=== PATIENT | female | born 1955 | race Caucasian/White ===

== ENCOUNTER → 2018-01-17 14:58 | Outpatient (POV) | payer OTHER, SELFPAY | PROVIDERS: Family Provider Internal Medicine; PCP Internal Medicine; Visit Provider Physician Assistant | DX: Z00.00 Encounter for general adult medical examination without abnormal findings (principal) ==

== ENCOUNTER → 2018-04-07 15:05 | Outpatient (CLI) | payer OTHER, SELFPAY ==
--- NOTE | 2018-04-07 15:08 | MM_ITS ---
MM Dig screening mamm BI w/CAD CAD Screening COMPARISON: Digital mammograms with CAD 03/13/2015 and 02/27/2014 INDICATION: There is a history of breast cancer patient's aunt diagnosed after menopause there has been previous biopsy right breast for benign disease TECHNIQUE: Standard CC and MLO images were obtained. R2 CAD reviewed. FINDINGS: Prominent diffuse fibroglandular densities are seen in both breasts. Again noted is asymmetric glandular tissue axillary tail right breast but appears somewhat less prominent on today's study than previously. A biopsy clip is again noted upper outer quadrant right breast. There is no suspicious lesion and no suspicious microcalcifications. There are couple benign-appearing calcifications in each breast. IMPRESSION: Stable exam no suspicious lesion seen BI-RADS Category: 2 Benign Finding(s) RECOMMENDED FOLLOW-UP: 1YR - 1 YEAR FOLLOW-UP (A letter has been sent to the patient regarding results of the study.)
== END ==
PROVIDERS: PCP Internal Medicine; Visit Provider Nurse Practitioner Obstetrics & Gynecology
DX: Z12.31 Encounter for screening mammogram for malignant neoplasm of breast (principal)
CPT/HCPCS: 77067

== ENCOUNTER → 2018-05-17 15:11 | Outpatient (POV) | payer OTHER, SELFPAY | PROVIDERS: Visit Provider Dermatology | DX: Z00.00 Encounter for general adult medical examination without abnormal findings (principal) ==

== ENCOUNTER → 2019-06-28 15:12 | Outpatient (CLI) | payer OTHER, SELFPAY ==
--- NOTE | 2019-06-28 15:13 | MM_ITS ---
PROCEDURE: MM DIG SCREENING MAMM BI W/CAD CLINICAL INDICATION: screening xmg There is a history of breast cancer patient's aunt diagnosed after menopause. There has been previous biopsy right breast for benign disease. COMPARISON: [facility] DIG MAMM-SCREEN [facility] from 02/27/2014 [facility] DIG MAMM-SCREEN [facility] from 03/13/2015 [facility] MM Dig screening mamm BI w/CAD from 04/07/2018 TECHNIQUE: Standard CC and MLO images and 3D Tomosynthesis was obtained. R2 CAD reviewed. FINDINGS: Moderate diffuse fibroglandular densities are seen in the central portions of both breasts. There is a biopsy clip right breast. Cristobal images were reviewed showing no suspicious abnormality in either breast. There are no suspicious microcalcifications. IMPRESSION: Moderate diffuse density with no suspicious lesions seen BI-RAD Category: 2 Benign Finding(s) FOLLOW-UP: 1YR 1 Year Follow-up (A letter has been sent to the patient regarding results of the study.) Dictated by: Dr. López Sheppard MD 07/04/2019 12:[address] López Sheppard MD in [place] 07/04/2019 12:59
== END ==
PROVIDERS: PCP Internal Medicine; Visit Provider Nurse Practitioner Obstetrics & Gynecology
DX: Z12.31 Encounter for screening mammogram for malignant neoplasm of breast (principal)
CPT/HCPCS: 77063; 77067

== ENCOUNTER 2020-01-23 19:02 | Emergency (ER) | payer OTHER, SELFPAY ==
[2020-01-23 19:23] VITALS: BP 148/123; PULSE 109; RESP 20; O2SAT 96; BMI 26.4
--- NOTE | 2020-01-23 19:33 | HMH.EDUTC ---
[facility] [place] Disposition Clinical Impression: Encounter for laboratory testing for COVID-19 virus Upper respiratory infection Qualifiers: URI type: unspecified URI Qualified Code(s): J06.9 - Acute upper respiratory infection, unspecified Disposition: Home, Self-Care Condition on Discharge: Good Instructions: Sore Throat, DI for Sinusitis, Sinusitis, Preventing the Spread of Coronavirus Discharge Instructions Additional Instructions: *Monitor Temp, Over the counter Motrin or Tylenol as directed/as needed Tylenol every 4 hours and Motrin every 6 hours (as long as your family doctor has told you that you can take it) for fever or pain. and straight to ER if unable to lower temp less than 101.0 after medication given *Warm salt water gargles may help to soothe the throat *Throat Lozenges *Warm fluids like tea with honey may help to soothe the throat *Sleep elevated *Humidifier/Vaporizer *Flonase 2 sprays in each nostril daily but be aware that it may take 2-3 days before you notice improvement Your throat swab was sent for culture. Those results are typically sent to your primary care. Be sure to follow up in 2-3 days with your family doctor/primary care physician if no improvement so they can review those result and treat if necessary. If you don?t have a primary care doctor, I recommend you get one but in the mean time, you will have to return to a walk in clinic Follow up IMMEDIATELY for new or worsening symptoms or no Noticeable improvement over the next 48-72 hours. 911 for difficulty breathing or swallowing Follow up with Family Doctor for re-evaluation of blood pressure You was tested for today for COVID19 your test result should be back later this evening call back to the [facility] to see if your test results are back and the result if closed you may check with the Medical Writer You was given a handout with instructions for Self Quarantine and Self isolation for while you wait on test results and what to do if they are positive Prescriptions: Fluticasone Propionate [Flonase 50mcg nasal spray 16gm] 1 - 2 spr NS DAILY #1 bottle Transmission Status: Pending to [facility] #[id number] Azithromycin [Z-Triston 250mg Tab] 250 mg PO DIRECTED #6 tab Transmission Status: Pending to [facility] # Referrals: Navneet Marie [Primary Care Provider] - As needed Time of Disposition: 19:47 Medical Decision Making - Chase Inquiry Pt receiving controlled substance: No Chase was queried for this patient: No Vital Signs: 01/23/20 19:23 Pulse Rate [Radial] 109 H Respiratory Rate 20 Blood Pressure [Right Arm] 148/123 H Blood Pressure Mean [Right Arm] 131 Blood Pressure Source [Right Arm] Automatic Cuff Blood Pressure Position [Right Arm] Sitting 02 Sat by Pulse Oximetry 96 Oxygen Delivery Method Room Air Orders (Tests/Meds): ORDERS Category Date Time Status Covid-19 Nasal PCR ([facility]) Routine Lab 01/23/20 19:10 Ordered [facility] [place] HPI - General Stated complaint: fever,sore throat,cough, Time Seen by Provider: 01/23/20 19:33 Mode of Arrival: Ambulatory Source of Information: Patient Limitations: No Limitations Description of Symptoms (Recalled from Triage Doc. by RN): Needs COVID testing. Exposed to it at work. Cough, fever. HEENT Symptoms (Recalled from RN notes): Yes Resp Symptoms (Recalled from RN notes): No Skin Symptoms (Recalled from RN notes): No MS Symptoms (Recalled from RN notes): No Functional Status (Recalled from RN notes): wnl - History of Present Illness Provider Complaint: Patient states that she come in to get tested for COVID after being exposed several days ago States that she has been having sinus pain and pressure along with sore throat, pressure like feeling in her ears, cough and fever States that she is suppose to work tomorrow and didnt want to expose her coworkers after she started feeling sick yesterday States that she has been taking over the counter cold medication but hasnt helpe
[2020-01-23 19:48] VITALS: BP 148/96
[2020-01-23 19:58] VITALS: BP 148/96; PULSE 109; RESP 20; TEMP 37.2; O2SAT 96
[2020-01-23 20:00] LABS: UTC Strep Screen (Rapid) Negative (Negative)
== END 2020-01-23 20:00 | disposition home or self-care (01) ==
PROVIDERS: Emergency Provider Nurse Practitioner; PCP Internal Medicine
DX: J06.9 Acute upper respiratory infection, unspecified (principal); Z20.828 Contact with and (suspected) exposure to other viral communicable diseases; J45.909 Unspecified asthma, uncomplicated; F33.1 Major depressive disorder, recurrent, moderate; G43.709 Chronic migraine without aura, not intractable, without status migrainosus; Z79.899 Other long term (current) drug therapy
CPT/HCPCS: 87880; 99202; U0003

== ENCOUNTER → 2020-03-22 01:16 | Outpatient (CLI) | payer OTHER, SELFPAY ==
--- NOTE | 2020-03-22 01:17 | XR_ITS ---
PROCEDURE: XR FOOT WT BEARING RT 3V CLINICAL INDICATION: pain COMPARISON: No exams were available for comparison FINDINGS: No fracture or dislocation. No lytic or blastic change. There is normal mineralization. There is some mild bony hypertrophy involving the distal aspect of the 1st metatarsal. No significant osteoarthritic changes. Other findings:None. IMPRESSION: Bony hypertrophy at the distal aspect of the 1st metatarsal otherwise negative Dictated by: Dewayne Guevara MD 03/22/2020 05:42 Dewayne Guevara MD in [place] 03/22/2020 05:42
--- NOTE | 2020-03-22 01:17 | XR_ITS ---
PROCEDURE: XR FOOT WT BEARING LT 3V CLINICAL INDICATION: pain Foot pain on bottom of foot COMPARISON: CR XR FOOT WT BEARING RT 3V from 03/22/2020 FINDINGS: Osteoarthritic changes present at the 1st MTP joint. There is a small area of bony sclerosis involving distal aspect of the 2nd metatarsal which represent an old stress fracture. Good alignment. No lytic or blastic change.. 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 Small area of sclerosis at the distal aspect of the 2nd metatarsal which could be due to a bone island or an old stress fracture Dictated by: Dewayne Guevara MD 03/22/2020 05:41 Dewayne Guevara MD in [place] 03/22/2020 05:41
== END ==
PROVIDERS: PCP Internal Medicine; Visit Provider Podiatrist
DX: M79.672 Pain in left foot (principal); M79.671 Pain in right foot
CPT/HCPCS: 73630

== ENCOUNTER → 2020-10-08 14:39 | Outpatient (CLI) | payer MEDICARE, OTHER, SELFPAY ==
--- NOTE | 2020-10-08 14:44 | MM_ITS ---
PROCEDURE INFORMATION: Exam: MG Screening 3D Mammography Exam date and time: 10/08/2020 2:44 PM Age: 65 years old Clinical indication: Encounter for screening mammogram for malignant neoplasm of breast TECHNIQUE: Imaging protocol: Screening tomosynthesis and 2D mammography including computer-aided detection (CAD) when performed. COMPARISON: 1. MG MM DIG SCREENING MAMM BI W/CAD 06/28/2019 3:22 PM 2. MG [facility] MM Dig screening mamm BI w/CAD 04/07/2018 3:20 PM FINDINGS: MAMMOGRAPHY: Breast composition: The breast tissue is heterogeneously dense, which may obscure small masses. Mass: None. Architectural distortion: None. Calcifications: No suspicious calcifications. Asymmetric density: None. Skin thickening: None. Axillary adenopathy: None. IMPRESSION: No mammographic evidence of malignancy. Annual screening is recommended unless otherwise clinically indicated. ASSESSMENT: BI-RADS Category 1: Negative
== END ==
PROVIDERS: PCP Internal Medicine; Visit Provider Nurse Practitioner Obstetrics & Gynecology
DX: Z12.31 Encounter for screening mammogram for malignant neoplasm of breast (principal)
CPT/HCPCS: 77063; 77067